=== PATIENT | male | born 1955 | race Caucasian/White ===

== ENCOUNTER → 2018-01-17 | Outpatient (CLI) | payer OTHER ==
[2018-01-17 10:21] LABS: BASO % 1 % (0-3); EOS # 0.2 x10^3/uL (0.0-0.7); EOS % 3 % (0-3); HEMATOCRIT 43.8 % (39.0-53.0); HEMOGLOBIN 14.8 g/dL (13.0-17.5); LYMPH # 1.2 x10^3/uL (1.0-4.8); LYMPH % 20 % (24-48); MEAN CORPUSCULAR HEMOGLOBIN 31 pg (25-35); MEAN CORPUSCULAR HGB CONC 34 g/dL (31-37); MEAN CORPUSCULAR VOLUME 91 fL (79-100); MONO # 0.6 x10^3/uL (0.0-1.1); MONO % 9 % (0-9); NEUT # 4.1 x10^3uL (1.8-7.7); NEUT % 68 % (31-73); PLATELET COUNT 238 x10^3/uL (140-400); RED BLOOD COUNT 4.84 x10^6/uL (4.30-5.70); RED CELL DISTRIBUTION WIDTH 13.5 % (11.5-14.5); WHITE BLOOD COUNT 6.1 x10^3/uL (4.0-11.0)
[2018-01-17 10:24] LABS: C REACTIVE PROTEIN 5.2 mg/L (0-3.3); CALCIUM 8.4 mg/dL (8.5-10.1); GFR 76.2; POTASSIUM 4.3 mmol/L (3.5-5.1)
[2018-01-17 10:28] LABS: BACTERIA,URINE 0 /HPF (0-FEW); BILIRUBIN,URINE NEG (NEG); CLARITY,URINE CLEAR; COLOR,URINE YELLOW; GLUCOSE,URINE NEG (NEG); NITRITE,URINE NEG (NEG); RBC,URINE 0 /HPF (0-2); SQUAMOUS EPITHELIAL CELL,UR OCC /LPF; UROBILINOGEN,URINE 0.2 mg/dL (0.2 mg/dL); WBC,URINE RARE /HPF (0-4)
--- NOTE | 2018-01-17 10:34 | RAD ---
EXAM: Chest, 2 views. HISTORY: Preoperative evaluation. Hypertension. COMPARISON: None. FINDINGS: Frontal and lateral views of the chest are obtained. There is no infiltrate, effusion or pneumothorax. The heart is normal in size. IMPRESSION: No acute pulmonary finding. Electronically signed by: Cynthia Cruz MD (01/17/2018 10:29 AM) [facility]
[2018-01-17 11:47] LABS: SEDIMENTATION RATE 4 (0-15)
--- NOTE | 2018-01-17 12:55 | EKG ---
[address] [address] Test Date: 2018-01-17 Test Time: 09:51:53 Pat Name: SIMON DO Department: Room: Gender: M [address]: : 1955 Requested By: HASMUKH NICOLAS Order Number: [id number] Reading MD: Measurements Intervals [place] Rate: 56 P: 37 CA: 158 QRS: 24 QRSD: 92 T: 14 QT: 430 QTc: 417 Interpretive Statements SINUS RHYTHM QRS(T) CONTOUR ABNORMALITY CONSIDER ANTEROLATERAL MYOCARDIAL DAMAGE POSSIBLY ABNORMAL ECG RI6.01 No previous ECG available for comparison
[2018-01-18 06:11] LABS: HEMOGLOBIN A1C 6.2 % (4.8-5.6)
== END | disposition home or self-care (01) ==
LOC: LAB 09:20
PROVIDERS: ATTEND Orthopaedic Surgery
DX: Z01.818 Encounter for other preprocedural examination (principal); I10 Essential (primary) hypertension
CPT/HCPCS: 36415; 71046; 80048; 81001; 83036; 85025; 85610; 85651; 85730; 86140; 93005